=== PATIENT | male | born 1955 | race Caucasian/White ===

== ENCOUNTER 2016-11-11 11:15 | Inpatient (IN) | payer BC ==
[2016-11-06 14:17] LABS: HEMATOCRIT 38.7 % (40.0-51.0); HEMOGLOBIN 13.3 g/dL (13.6-17.8)
[2016-11-06 14:40] LABS: BUN (BLOOD UREA NITROGEN) 13 MG/DL (6-23); CALCIUM, SERUM 9.5 MG/DL (8.5-10.4); CHLORIDE, SERUM 105 MMOL/L (96-112); CO2 (CARBON DIOXIDE) 30 MMOL/L (24-34); CREATININE 0.94 MG/DL (0.70-1.30); GFR AFRICAN AMERICAN 101 ML/MIN (>=60); GFR NON AFRICAN AMERICAN 87 ML/MIN (>=60); POTASSIUM, SERUM 4.4 MMOL/L (3.5-5.3); SODIUM, SERUM 139 MMOL/L (135-148)
[2016-11-06 14:41] LABS: GLUCOSE, SERUM 79 MG/DL (60-99)
[~2016-11-11] VITALS: Ht 188 cm; Wt 87.5 kg
--- NOTE | ~2016-11-11 | OP ---
Record Of Operation [facility] [address] [place]. [address] NAME: TRACY MENDOZA : 53 STATUS : ADM IN PAT#: [id number] AGE: 60 ADM/REG DATE : 11/11/16 MR#: [id number] REPORT SERV DATE: 11/13/16 DICTATED BY: EDGARD MILLER DATE: 11/12/16 REPORT STATUS : Draft TRANSCRIBED BY: MODL DATE: 11/12/16 DATE OF PROCEDURE: 11/11/2016 PREOPERATIVE DIAGNOSIS: Rectal cancer at 8 cm right posterior. POSTOPERATIVE DIAGNOSIS: Rectal cancer at 8 cm right posterior. PROCEDURE: Robotic proctectomy with coloanal anastomosis and diverting ileostomy. RESIDENT: Sudarshan. ANESTHESIA: General. ESTIMATED BLOOD LOSS: Less than 100 mL. INDICATION: The patient presented with an advanced rectal cancer and underwent neoadjuvant chemoradiation; proctectomy with coloanal was offered to him and the risks including bleeding, infection, cardiac and pulmonary complications, DVT, damage to adjacent organs, genitourinary dysfunction, poor bowel function, need for staged procedures, recuperation among others were discussed with him and he expressed understanding and agreed to proceed. DESCRIPTION OF PROCEDURE: The patient was taken to the operating room and placed in supine position. General anesthesia was induced. The abdomen and perineum were prepped and draped after he was placed in stirrups and a stab incision was made in the umbilicus and a Veress needle placed and the air insufflation was obtained to 15 mmHg pressure. An Optiview-type 12 port was then placed in the right upper quadrant as an radiology physician assistant port, and then I placed a 12 mm port in the right lower quadrant and then 8 mm just to the right of the umbilicus and then two 8 mm ports on the left side and a 5 in the epigastrium. He was placed in steep Trendelenburg and scissors were placed in #4, camera in #3, fenestrated bipolar in #2 and a bowel grasper in #1. Shortly after starting the procedure, the #3 arm malfunctioned and therefore, we brought the #2 arm to the previous #3 spot and then the #1 arm to the #3 spot and then did not use the small bowel grasper. I identified the inferior mesenteric vein and this was ligated and divided using clips just below the ligament of Treitz. I then did a medial to lateral dissection, mobilized up to the pancreas and into the lateral abdominal sidewall and then identified the inferior mesenteric artery and divided this just beyond the takeoff of the left colic, which was also divided separately after we placed locking clips on these vessels. I had identified the ureter prior to ligating and dividing the inferior mesenteric and left colic vessel and then I dissected off the sigmoid colon from the sigmoid recess using cautery and then did a total mesorectal excision with nerve sparing by identifying the sympathetics and also staying away from the parasympathetics and posterior to Denonvilliers fascia anteriorly. I dissected this down to the pelvic floor and then placed successive firings of the 45 stapler. I then undocked and placed the patient in reverse Trendelenburg and redocked, and then mobilized the splenic flexure completely all the way to the level of the ligamentum teres. This allowed adequate length and then the site in the right lower quadrant, which was previously marked for the stoma was used to Record Of Operation [place] [id number] [facility] [place]. [address] NAME: TRACY MENDOZA : 53 STATUS : ADM IN [facility]#: [id number] AGE: 60 ADM/REG DATE : 11/11/16 MR#: [id number] REPORT SERV DATE: 11/13/16 DICTATED BY: EDGARD MILLER DATE: 11/12/16 REPORT STATUS : Draft TRANSCRIBED BY: MODL DATE: 11/12/16 extract the specimen. This was done by cutting a capitan grande of skin and then enlarging this incision and placing a wound protector. I brought the specimen out through that side and then divided the colon at the level of the sigmoid, and there was excellent blood supply. There was adequate length to do an end-to-side for J-configuration, but not a formal J- pouch. This was done by isolating the area with towels and then placing the anvil mesenteric portion of the colon and then the end was closed using a JOSE stapler. The colon was reinforced at the anvil site with a pursestring of 2-0 Prolene. I then reinsufflated and completed the anastomosis after placing the stapler through the anus, and there were two complete rings and no tension and excellent blood supply and there was a negative air leak test. The specimen was evaluated by the pathologist and there was excellent margin and intact mesorectum. The abdomen was then checked for hemostasis and a site was chosen in the terminal ileum for diversion and then the 12 mm sites were closed with 0 Vicryl, and the specimen extrusion site was closed using 0 Vicryl to the proper size for the stoma, which was brought out and then loop ileostomy was matured after closing the skin incision with 3-0 Vicryl, it was matured using 3-0 chromic Taylor stitches. Counts were correct, and the appliance was placed. Dressings otherwise were applied to the other incisions and the patient tolerated the procedure well and left the operating room in stable condition. LYLE/SCOTT Sultana Miller M.D. / [id number] CC: Francisca Weaver Jr., D.O.
[~2016-11-11 11:15] MED LIST: ASAEC PO; LIPITOR20 PO; PRIN2.5 PO; TOPXL25 PO
[2016-11-12 05:54] LABS: BASOPHILS 0 %; EOSINOPHILS 0 %; HEMATOCRIT 35.9 % (40.0-51.0); HEMOGLOBIN 12.3 g/dL (13.6-17.8); LYMPHOCYTES 8.3 %; LYMPHOCYTES ABSOLUTE 0.48 10/3/uL (0.67-4.30); MEAN CORPUS HGB CONC 34.3 g/dL (32.0-36.0); MEAN CORPUSCULAR HEMOGLOB 30.5 pg (26.0-34.0); MEAN PLATELET VOLUME 9.3 fL (9.2-13.0); MONOCYTES 8.7 %; PLATELET COUNT 177 10/3/uL (150-400); RBC DISTRIBUTION WIDTH 13.6 % (12.0-16.0); WHITE BLOOD CELLS 5.8 10/3/uL (4.5-10.5)
[2016-11-12 05:56] LABS: MANUAL DIFF NO %; MEAN CORPUSCULAR VOLUME 89.1 fL (80-100); RED CELL COUNT 4.03 10/6/uL (4.7-6.1)
[2016-11-12 06:00] LABS: BUN (BLOOD UREA NITROGEN) 11 MG/DL (6-23); CHLORIDE, SERUM 105 MMOL/L (96-112); CO2 (CARBON DIOXIDE) 26 MMOL/L (24-34); CREATININE 0.98 MG/DL (0.70-1.30); GFR AFRICAN AMERICAN 96 ML/MIN (>=60); GFR NON AFRICAN AMERICAN 83 ML/MIN (>=60); POTASSIUM, SERUM 4.1 MMOL/L (3.5-5.3); SODIUM, SERUM 140 MMOL/L (135-148)
[2016-11-12 06:01] LABS: CALCIUM, SERUM 8.5 MG/DL (8.5-10.4); GLUCOSE, SERUM 134 MG/DL (60-99)
[2016-11-13 07:40] LABS: BUN (BLOOD UREA NITROGEN) 10 MG/DL (6-23); CALCIUM, SERUM 9.3 MG/DL (8.5-10.4); CHLORIDE, SERUM 100 MMOL/L (96-112); CO2 (CARBON DIOXIDE) 29 MMOL/L (24-34); CREATININE 0.89 MG/DL (0.70-1.30); GFR AFRICAN AMERICAN 107 ML/MIN (>=60); GFR NON AFRICAN AMERICAN 92 ML/MIN (>=60); GLUCOSE, SERUM 126 MG/DL (60-99); POTASSIUM, SERUM 3.8 MMOL/L (3.5-5.3); SODIUM, SERUM 137 MMOL/L (135-148)
[2016-11-14 04:53] LABS: PHOSPHORUS, SERUM 2.6 MG/DL (2.5-4.5)
[2016-11-15] MEDS ORDERED: FLOMAX4 PO (11:36)
[2016-11-15] MEDS ORDERED: PCET PO (11:37)
== END 2016-11-15 12:04 | disposition home or self-care (01) | DRG 331 ==
LOC: ENRESERVDT → ENRESERVTM → ENRESERV → 5SO 11:15 → SDC/OF 11:15 → 5SO 20:38
PROVIDERS: Colon & Rectal Surgery; Surgery
PROC: 0DBN4ZZ Excision of Sigmoid Colon, Percutaneous Endoscopic Approach (ICD-10-PCS; 2016-11-11)
PROC: 0D1B4ZB Bypass Ileum to Ileum, Percutaneous Endoscopic Approach (ICD-10-PCS; 2016-11-11)
PROC: 8E0W4CZ Robotic Assisted Procedure of Trunk Region, Percutaneous Endoscopic Approach (ICD-10-PCS; 2016-11-11)
PROC: 3E0T3CZ (ICD-10-PCS; 2016-11-11)
PROC: 0DBP4ZZ Excision of Rectum, Percutaneous Endoscopic Approach (ICD-10-PCS; principal; 2016-11-11 12:30)
DX: C20 Malignant neoplasm of rectum (principal); I10 Essential (primary) hypertension; I25.2 Old myocardial infarction; I25.10 Atherosclerotic heart disease of native coronary artery without angina pectoris; R33.8 Other retention of urine; Z87.891 Personal history of nicotine dependence; Z80.0 Family history of malignant neoplasm of digestive organs; Z79.82 Long term (current) use of aspirin; Z79.899 Other long term (current) drug therapy
CPT/HCPCS: 80048; 82962; 83735; 84100; 85014; 85018; 85025; 88309; 93005; 97161-GP; A9270-GY; J0690; J2250; J2270; J2405; J2550; J2710; J2795; J3010